=== PATIENT | male | born 1970 ===

== ENCOUNTER 2022-12-10 22:41 | Emergency (ER) | payer OTHER ==
[~2022-12-10] VITALS: Ht 165.1 cm; Wt 54.4 kg
[2022-12-10 22:58] VITALS: BP 144/88; PULSE 74; RESP 16; TEMP 97.4; O2SAT 100
[2022-12-11] MEDS ORDERED: NACL 0.9% 1,000 ML IV ONE (01:55)
[2022-12-11 02:28] LABS: BASOPHILS # (AUTO) 0.1 K/uL (0.00-0.22); BASOPHILS % (AUTO) 0.8 % (0.0-2.0); EOSINOPHILS % (AUTO) 0.5 % (0.0-4.0); HEMATOCRIT 42.7 % (36-52); HEMOGLOBIN 14.3 g/dL (12.0-18.0); LYMPHOCYTES # (AUTO) 2.1 K/uL (2.0-11.5); LYMPHOCYTES % (AUTO) 24.9 % (20.5-51.1); MEAN CORPUSCULAR HEMOGLOBIN 33 pg (27-31); MEAN CORPUSCULAR HGB CONC 34 g/dL (33-37); MEAN CORPUSCULAR VOLUME 98.1 fL (80-94); MONOCYTES # (AUTO) 0.7 K/uL (0.8-1.0); MONOCYTES % (AUTO) 7.9 % (1.7-9.3); NEUTROPHILS # (AUTO) 5.4 K/uL (1.8-7.7); NEUTROPHILS % (AUTO) 65.9 % (42.2-75.2); PLATELET COUNT (AUTO) 185 K/uL (140-450); RED BLOOD CELL COUNT(AUTO) 4.35 MIL/uL (4.20-6.10); RED CELL DISTRIBUTION WIDTH 14.3 % (11.6-13.7); WHITE BLOOD COUNT (AUTO) 8.3 K/uL (4.8-10.8)
[2022-12-11 02:30] LABS: APPEARANCE,URINE CLEAR (CLEAR); BILIRUBIN,URINE NEGATIVE (NEGATIVE); BLOOD, URINE NEGATIVE (NEGATIVE); COLOR,URINE YELLOW (YELLOW); LEUKOCYTE ESTERASE ,URINE NEGATIVE (NEGATIVE); NITRITE, URINE NEGATIVE (NEGATIVE); PH,URINE 5.5 (5.0-9.0); PROTEIN,URINE NEGATIVE (NEGATIVE); UGLUCOSE 3+ (NEGATIVE); UROBILINOGEN,URINE 0.2 EU/dL (0.2 - 1)
[2022-12-11 02:42] LABS: AMPHETAMINE, URINE NEGATIVE ng/ml (NEG <=1000); BARBITURATE, URINE NEGATIVE ng/ml (NEG <=200); BENZODIAZEPINE, URINE NEGATIVE ng/mL (NEG <=200); CANNABINOID, URINE POSITIVE ng/mL (NEG <=50); COCAINE, URINE NEGATIVE ng/mL (NEG <=300); OPIATE, URINE NEGATIVE ng/mL (NEG <=2000); PHENCYCLIDINE SCREEN,URINE NEGATIVE ng/mL (NEG <=25)
[2022-12-11 02:45] LABS: BACTERIA,URINE OCCASSIONAL /HPF (None Seen); RBC,URINE NONE SEEN /HPF (0-5); SQUAMOUS EPITHELIAL CELL,UR 0-3 (FEW) /LPF (0-3 (FEW)); WBC,URINE NONE SEEN /HPF (0-5)
[2022-12-11 02:50] LABS: ACETONE, SERUM Negative (NEGATIVE)
[2022-12-11 03:02] LABS: ALANINE AMINOTRANSFERASE 53 U/L (12-78); ALBUMIN 3.8 g/dL (3.4-5.0); ALKALINE PHOSPHATASE 101 U/L (50-136); ANION GAP 22.6 (8-16); ASPARTATE AMINOTRANSFERASE 48 U/L (15-37); CALCIUM 8.9 mg/dL (8.5-10.1); CARBON DIOXIDE 21.6 mmol/L (21-32); CHLORIDE 93 mmol/L (98-107); CREATINE KINASE, TOTAL 351 U/L (39-308); CREATININE 1.2 mg/dL (0.6-1.3); GFR ARICAN-AMERICAN 82 mL/min (>90); GFR NON ARICAN-AMERICAN 68 mL/min (>90); GLUCOSE 351 mg/dL (74-106); LIPASE 124 U/L (73-393); MAGNESIUM 2.1 mg/dL (1.8-2.4); PHOSPHORUS 4.9 mg/dL (2.5-4.9); POTASSIUM 4.2 mmol/L (3.5-5.1); SODIUM SERUM 133 mmol/L (136-145); TOTAL BILIRUBIN 0.9 mg/dL (0.0-1.0); TOTAL PROTEIN, SERUM 6.8 g/dL (6.4-8.2); UREA NITROGEN, BLOOD 26 mg/dL (7-18)
[2022-12-11] MEDS ORDERED: INSULIN REGULAR, HUMAN 100 UNIT/ML VIAL IVP ONE (03:20)
[2022-12-11 03:25] LABS: CKMB RELATIVE INDEX 1.5 (0.0-2.5); CREATINE KINASE MB 5.2 ng/mL (0-3.6)
[2022-12-11 04:21] VITALS: O2SAT 99
[2022-12-11] MEDS ORDERED: PEN-124 SUBQ (05:21)
[2022-12-11] MEDS ORDERED: ONDA-188 SL (05:21)
[2022-12-11] MEDS ORDERED: [UNRECOGNIZED DRUG - CODE] SUBQ (05:21)
[2022-12-11 05:22] VITALS: BP 113/64; PULSE 98; RESP 16; O2SAT 98
== END 2022-12-11 05:22 | disposition home or self-care (01) ==
LOC: MED 22:41
DX: E10.65 Type 1 diabetes mellitus with hyperglycemia (principal); F10.129 Alcohol abuse with intoxication, unspecified; Z79.4 Long term (current) use of insulin; Z79.899 Other long term (current) drug therapy
CPT/HCPCS: 36415; 71045; 80053; 80305; 81001; 82009; 82550; 82553; 82803; 83690; 83735; 84100; 84484; 85025; 93005; 96361; 96374; 99285; G0482; J1815; J7030; Q0092